=== PATIENT | female | born 1980 | race Hispanic/Latino ===

== ENCOUNTER 2019-02-06 15:08 | Outpatient (CLI) | payer MEDICAID ==
[2019-02-06] MEDS ORDERED: LACTATED RINGERS 500 ML IV ONE (15:58)
--- NOTE | 2019-02-06 21:04 | Ultrasound Report ---
PROCEDURE: US OB LIMITED TECHNIQUE: Real-time limited sonographic examination was performed for evaluation of amniotic fluid index for each fetus with image documentation (1 or more fetuses). HISTORY: well being COMPARISONS: None . FINDINGS: FETUS IUP: Single living intrauterine . Position: Cephalic . Amniotic fluid volume: Normal 9.1 cm Heart rate and rhythm: 166 BPM, Regular . IMPRESSION: Amniotic fluid index is within normal limits This document is electronically signed by Syd Camacho MD., February 06 2019 09:01:58 PM ET
--- NOTE | 2019-02-06 21:05 | Ultrasound Report ---
PROCEDURE: US OB BPP WO NON-STRESS TECHNIQUE: Sonographic evaluation for breathing, movement, tone, and amniotic flui d volume was performed. HISTORY: well being COMPARISONS: None . FINDINGS: FETUS Amniotic fluid volume Normal-score 2. At least one vertical pocket >2 cm or more in vertical axis . breathing: Normal-score 2 . movement: Normal-score 2 . tone: Normal-score 2 . Score: 8 of 8 . IMPRESSION: Normal biophysical profile . This document is electronically signed by Syd Camacho MD., February 06 2019 09:02:50 PM ET
[2019-02-20] MEDS ORDERED: BICITRA ONE (07:13)
[2019-02-20] MEDS ORDERED: ANCEF/STERILE WATER 2 GM/20 ML 2 GM/20 ML SYRINGE IV ONE (07:13)
[2019-02-20] MEDS ORDERED: PEPCID IV ONE (07:13)
[2019-02-20] MEDS ORDERED: REGLAN ONE (07:13)
== END 2019-02-06 19:06 | disposition left against medical advice (07) ==
LOC: LAB 15:08 → TRG 15:49 → LAB 19:06
PROVIDERS: ATTEND Advanced Practice Midwife
DX: O26.893 Other specified pregnancy related conditions, third trimester (principal); O09.523 Supervision of elderly multigravida, third trimester; Z67.11 Type A blood, Rh negative; Z3A.35 35 weeks gestation of pregnancy; Z87.891 Personal history of nicotine dependence
CPT/HCPCS: 59025; 76815; 76819; 86900; 86901; 96372; J2790; J0690; J2765

== ENCOUNTER 2019-02-25 11:36 | Outpatient (CLI) | payer MEDICAID | END 2019-02-25 11:37 | disposition home or self-care (01) | LOC: LAB 11:36 | PROVIDERS: ATTEND Advanced Practice Midwife | DX: Z34.83 Encounter for supervision of other normal pregnancy, third trimester (principal); Z3A.38 38 weeks gestation of pregnancy | CPT/HCPCS: 86850; 86870; 86900; 86901 ==

== ENCOUNTER 2019-03-05 21:18 | Inpatient (IN) | payer MEDICAID ==
[2019-03-06] MEDS ORDERED: CERVIDIL VG ONE (00:08)
[2019-03-06] MEDS ORDERED: BRETHINE IVP PRN (00:10)
[2019-03-06] MEDS ORDERED: BRETHINE SUB-Q PRN (00:10)
[2019-03-06] MEDS ORDERED: MINERAL OIL PO PRN (00:10)
[2019-03-06] MEDS ORDERED: XYLOCAINE 2% INFILTRATI ONE (00:10)
[2019-03-06] MEDS: ALUM-MAG HYDROX-SIMETH 200-200-20MG/5ML PO PRN ×4 (00:26→20:00)
[2019-03-06] MEDS: LACTATED RINGERS 1,000 ML IV SCH ×2 (00:27→17:04)
[2019-03-06] MEDS ORDERED: PITOCin/NS 20 UNIT/1000ML DRIP 20 UNITS/1,000 ML BAG IV SCH (01:00)
[2019-03-06 01:44] LABS: Hematocrit 33.8 % (30.3-42.9); Hemoglobin 11.3 gm/dl (10.1-14.3); Mean Corpuscular HGB Conc 33 % (30-34); Mean Corpuscular Volume 87 fl (79-97); Platelet Count 212 K/mm3 (140-440); Red Cell Distribution Width 19.7 % (13.2-15.2)
--- NOTE | 2019-03-06 11:27 | History and Physical Report ---
History of Present Illness Date of examination: 03/06/19 Date of admission: 03/05/19 21:18 Chief complaint: Induction of labor History of present illness: Pt is a 38yo WF EDC 03/07/19; EGA 39 6/7 weeks presents for induction of labor due to suspected macrosomia per [facility]. She received late preantal care at [facility] since 34 weeks after transfer from [place], and co- managed by [facility] for AMA, Obesity, Fibromyalgia, Anxiety, ADD and PTSD. records are available and GBS is Negative. Past History Past Medical History: other (Pysch issues) Past Surgical History: no surgical history Social history: no significant social history, - Obstetrical History Expected Date of Delivery: 03/07/19 Actual Gestation: 39 Week(s) 6 Day(s) : 8 Medications and Allergies Allergies Allergy/AdvReac Type Severity Reaction Status Date / Time Iodinated Contrast- Oral and AdvReac Severe Anaphylaxis Verified 02/06/19 15:56 IV Dye Home Medications Medication Instructions Recorded Confirmed Last Taken Type Pnv 102/Iron/Folate 1/Dss/Dha 03/06/19 Unknown History [Vitafol Fe+ Docusate Combo Pck] Active Meds: Active Medications Al Hydrox/Mg Hydrox/Simethicone (Alum-Mag Hydrox-Simeth [id number]/5ml) 30 ml PO Q4H PRN PRN Reason: Indigestion Last Admin: 03/06/19 10:02 Dose: 30 ml Documented by: Ephedrine Sulfate (Ephedrine Sulfate) 10 mg IV Q2M PRN PRN Reason: Hypotension Lactated Ringer's (Lactated Ringers) 1,000 mls @ 125 mls/hr IV DIRECT LISA Last Admin: 03/06/19 00:27 Dose: 125 mls/hr Documented by: Oxytocin/Sodium Chloride (Pitocin/Ns 20 Unit/1000ml Drip) 20 units in 1,000 mls @ 125 mls/hr IV DIRECT LISA Oxytocin/Sodium Chloride (Pitocin/Ns 30 Unit/500ml) 30 units in 500 mls @ 1 mls/hr IV TITR LISA; Protocol Mineral Oil (Mineral Oil) 30 ml PO QHS PRN PRN Reason: Constipation Last Admin: 03/06/19 07:53 Dose: 30 ml Documented by: Terbutaline Sulfate (Brethine) 0.25 mg SUB-Q ONCE PRN PRN Reason: Hyperstimulation/Hypertonicity Terbutaline Sulfate (Brethine) 0.25 mg IVP ONCE PRN PRN Reason: Hyperstimulation/Hypertonicity Review of Systems All systems: negative - Vital Signs Vital signs: Vital Signs Pulse BP 94 H 135/63 03/05/19 22:00 03/05/19 22:00 Temp Pulse Resp BP Pulse Ox 96.3 F L 88 18 134/69 03/06/19 10:05 03/06/19 10:05 03/05/19 23:23 03/06/19 10:05 - Physical Exam Breasts: Positive: deferred Cardiovascular: Regular rate Lungs: Positive: Clear to auscultation Genitourinary (Female): Positive: normal external genitalia Vagina: Positive: normal moisture Uterus: Positive: enlarged Extremities: Positive: normal - Obstetrical FHR: category 1 Uterine Contraction Monitor Mode: External Cervical Dilatation: 1 (per nurse) Cervical Effacement Percentage: 50 (per nurse) station: -3 Uterine Contraction Pattern: Irregular Uterine Contraction Intensity: Mild Results Result Diagrams: 03/06/19 00:15 Abnormal lab results 03/06/19 Range/Units 00:15 RDW 19.7 H (13.2-15.2) % All other labs normal. Assessment and Plan - Patient Problems (1) 39 weeks gestation of Onset Date: 03/06/19 Current Visit: Yes Status: Acute Plan to address problem: A: IUP @ 39 6/7 weeks Suspected macrosomia AMA P: Admit for cervidil/pitocin induction of labor (2) AMA (advanced maternal age) multigravida 35+ Onset Date: 03/06/19 Current Visit: Yes Status: Chronic Qualifiers: Trimester: third trimester Qualified Code(s): O09.523 - Supervision of elderly multigravida, third trimester (3) Chronic post-traumatic stress disorder (PTSD) Onset Date: 03/06/19 Current Visit: Yes Status: Chronic (4) Fibromyalgia Onset Date: 03/06/19 Current Visit: Yes Status: Chronic
[2019-03-06] MEDS: PITOCin/NS 30 UNIT/500ML 30 UNITS/500 ML BAG IV SCH (17:04)
[2019-03-07] MEDS: ALUM-MAG HYDROX-SIMETH 200-200-20MG/5ML PO PRN ×3 (04:00→20:00)
[2019-03-07] MEDS: LACTATED RINGERS 1,000 ML IV SCH (14:33)
[2019-03-07] MEDS: PITOCin/NS 30 UNIT/500ML 30 UNITS/500 ML BAG IV SCH (16:07)
--- NOTE | 2019-03-07 20:00 | Progress Note ---
Assessment and Plan - Patient Problems (1) 39 weeks gestation of Onset Date: 03/06/19 Current Visit: Yes Status: Acute Plan to address problem: A: IUP @ 40 0/7 weeks Suspected macrosomia AMA P: Continue with pitocin induction of labor (2) AMA (advanced maternal age) multigravida 35+ Onset Date: 03/06/19 Current Visit: Yes Status: Chronic Qualifiers: Trimester: third trimester Qualified Code(s): O09.523 - Supervision of elderly multigravida, third trimester (3) Chronic post-traumatic stress disorder (PTSD) Onset Date: 03/06/19 Current Visit: Yes Status: Chronic (4) Fibromyalgia Onset Date: 03/06/19 Current Visit: Yes Status: Chronic Subjective - Subjective Date of service: 03/07/19 Principal diagnosis: IUP @ 40 0/7 weeks Interval history: Pt is a 38yo WF EDC 03/07/19; EGA 40 0/7 weeks presents for induction of labor due to suspected macrosomia per [facility]. She received late preantal care at [facility] since 34 weeks after transfer from [place], and co- managed by [facility] for AMA, Obesity, Fibromyalgia, Anxiety, ADD and PTSD. records are available and GBS is Negative. She received cervidil the first night, but refused pitocin. She has since accepted pitocin for induction of labor and is currently on 16mu/min, but has also refused cervical checks. Patient reports: movement normal, contractions, no new complaints, no loss of fluid, no vaginal bleeding Objective - Vital Signs Vital Signs: Vital Signs - 12hr 03/07/19 03/07/19 03/07/19 09:45 10:00 10:15 Temperature Pulse Rate 113 H 103 H 87 Respiratory Rate Blood Pressure 130/74 114/68 119/56 03/07/19 03/07/19 03/07/19 10:32 10:45 11:00 Temperature Pulse Rate 94 H 98 H 88 Respiratory Rate Blood Pressure 118/56 118/66 114/65 03/07/19 03/07/19 03/07/19 11:15 11:30 12:01 Temperature Pulse Rate 87 87 76 Respiratory Rate Blood Pressure 112/75 122/71 111/55 03/07/19 03/07/19 03/07/19 12:05 12:30 13:01 Temperature 98.4 F Pulse Rate 83 78 Respiratory 20 Rate Blood Pressure 112/65 122/58 03/07/19 03/07/19 03/07/19 13:16 14:31 14:46 Temperature Pulse Rate 77 90 100 H Respiratory Rate Blood Pressure 139/77 133/66 125/71 03/07/19 03/07/19 03/07/19 15:00 15:16 16:02 Temperature Pulse Rate 91 H 98 H 90 Respiratory Rate Blood Pressure 119/56 110/64 122/64 03/07/19 03/07/19 03/07/19 16:32 17:00 17:02 Temperature 98.0 F Pulse Rate 92 H 85 Respiratory Rate Blood Pressure 118/65 108/52 03/07/19 03/07/19 17:32 18:32 Temperature Pulse Rate 97 H 93 H Respiratory Rate Blood Pressure 150/86 122/80 - Exam Abdomen: Present: normal appearance, soft Uterus: Present: normal FHR: category 1 Uterine Contraction Monitor Mode: External Uterine Contraction Pattern: Irregular Uterine Tone Measurement Phase: Contraction Uterine Contraction Intensity: Mild - Labs Labs: Abnormal Labs 03/06/19 00:15 RDW 19.7 H
[2019-03-08] MEDS ORDERED: CERVIDIL VG ONE (05:13)
[2019-03-08] MEDS ORDERED: MARCAINE 0.25% INFILTRATI ONE (07:08)
[2019-03-08] MEDS ORDERED: BICITRA ONE (07:26)
[2019-03-08] MEDS ORDERED: NARCAN 2 MG/2 ML IV PRN (09:30)
[2019-03-08] MEDS ORDERED: fentaNYL-BUPIV 2 MCG/ML-0.125% 200 MCG/100 ML BAG EPIDURAL SCH (09:30)
--- NOTE | 2019-03-08 10:00 | Progress Note ---
Assessment and Plan - Patient Problems (1) 39 weeks gestation of Onset Date: 03/06/19 Current Visit: Yes Status: Acute Plan to address problem: A: IUP @ 40 1/7 weeks Suspected macrosomia AMA P: Continue with cervidil induction of labor (2) AMA (advanced maternal age) multigravida 35+ Onset Date: 03/06/19 Current Visit: Yes Status: Chronic Qualifiers: Trimester: third trimester Qualified Code(s): O09.523 - Supervision of elderly multigravida, third trimester (3) Chronic post-traumatic stress disorder (PTSD) Onset Date: 03/06/19 Current Visit: Yes Status: Chronic (4) Fibromyalgia Onset Date: 03/06/19 Current Visit: Yes Status: Chronic Subjective - Subjective Date of service: 03/08/19 Principal diagnosis: IUP @ 40 1/7 weeks Interval history: Pt is a 38yo WF EDC 03/07/19; EGA 40 1/7 weeks presents for induction of labor due to suspected macrosomia per [facility]. She received late preantal care at [facility] since 34 weeks after transfer from [place], and co- managed by [facility] for AMA, Obesity, Fibromyalgia, Anxiety, ADD and PTSD. records are available and GBS is Negative. She received cervidil the first night, followed by pitocin. She rested last night and now ready to receive cervidil again. She again refused pitocin and monitoring. Patient reports: movement normal, contractions, no new complaints, no loss of fluid, no vaginal bleeding Objective - Vital Signs Vital Signs: Vital Signs - 12hr 03/08/19 08:30 Pulse Rate 84 Blood Pressure 119/63 - Exam Abdomen: Present: normal appearance, soft FHR: category 1 Uterine Contraction Monitor Mode: External Uterine Contraction Pattern: Irregular Uterine Tone Measurement Phase: Contraction Uterine Contraction Intensity: Mild - Labs Labs: Abnormal Labs 03/06/19 00:15 RDW 19.7 H
[2019-03-08] MEDS ORDERED: TYLENOL PO PRN (10:13)
[2019-03-08] MEDS: ALUM-MAG HYDROX-SIMETH 200-200-20MG/5ML PO PRN (10:20)
[2019-03-09] MEDS ORDERED: ceFAZolin 3 GM in NACL 0.9% 100 ML IV NR (07:30)
[2019-03-09] MEDS ORDERED: REGLAN IV ONE ×2 (08:00→08:51)
[2019-03-09] MEDS ORDERED: PEPCID IV ONE ×2 (08:00→08:51)
[2019-03-09] MEDS ORDERED: BICITRA PO ONE ×2 (08:00→08:51)
[2019-03-09] MEDS ORDERED: LACTATED RINGERS 1,000 ML IV SCH ×2 (08:00→09:00)
[2019-03-09] MEDS ORDERED: PITOCin/NS 20 UNIT/1000ML DRIP 20 UNITS/1,000 ML BAG IV SCH ×3 (08:00→12:00)
[2019-03-09 08:03] LABS: Basophils % (Auto) 0.2 % (0.0-1.8); Eosinophils # (Auto) 0.1 K/mm3 (0.0-0.4); Eosinophils % (Auto) 0.9 % (0.0-4.3); Hematocrit 33.7 % (30.3-42.9); Hemoglobin 11.3 gm/dl (10.1-14.3); Lymphocytes # (Auto) 1.4 K/mm3 (1.2-5.4); Lymphocytes % (Auto) 19.3 % (13.4-35.0); Mean Corpuscular HGB Conc 34 % (30-34); Mean Corpuscular Volume 86 fl (79-97); Monocytes # (Auto) 0.6 K/mm3 (0.0-0.8); Monocytes % (Auto) 8.4 % (0.0-7.3); Platelet Count 202 K/mm3 (140-440); Red Blood Count 3.91 M/mm3 (3.65-5.03); Red Cell Distribution Width 19.7 % (13.2-15.2)
[2019-03-09] MEDS ORDERED: ANCEF/STERILE WATER 2 GM/20 ML 4 GM/40 ML SYRINGE IV ONE (08:19)
--- NOTE | 2019-03-09 08:57 | Progress Note ---
Assessment and Plan - Patient Problems (1) 39 weeks gestation of Onset Date: 03/06/19 Current Visit: Yes Status: Acute Plan to address problem: A: IUP @ 40 2/7 weeks Suspected macrosomia AMA P: Will proceed with a C Section due to failed induction of labor. (2) AMA (advanced maternal age) multigravida 35+ Onset Date: 03/06/19 Current Visit: Yes Status: Chronic Qualifiers: Trimester: third trimester Qualified Code(s): O09.523 - Supervision of elderly multigravida, third trimester (3) Chronic post-traumatic stress disorder (PTSD) Onset Date: 03/06/19 Current Visit: Yes Status: Chronic (4) Fibromyalgia Onset Date: 03/06/19 Current Visit: Yes Status: Chronic Subjective - Subjective Date of service: 03/09/19 Principal diagnosis: IUP @ 40 2/7 weeks Interval history: Pt is a 38yo WF EDC 03/07/19; EGA 40 2/7 weeks presents for induction of labor due to suspected macrosomia per [facility]. She received late preantal care at [facility] since 34 weeks after transfer from [place], and co- managed by [facility] for AMA, Obesity, Fibromyalgia, Anxiety, ADD and PTSD. records are available and GBS is Negative. She received cervidil the first night, followed by pitocin. She rested last night and now ready to receive cervidil again. She again refused pitocin and monitoring. This morning she has agreed to proceed with a C Section due to failed induction of labor Patient reports: movement normal, contractions, no new complaints, no loss of fluid, no vaginal bleeding Objective - Vital Signs Vital Signs: Vital Signs - 12hr 03/09/19 03/09/19 08:38 08:42 Pulse Rate 96 H 88 Blood Pressure 126/77 O2 Sat by Pulse 95 Oximetry - Exam Abdomen: Present: normal appearance, soft FHR: category 1 Uterine Contraction Monitor Mode: External Uterine Contraction Pattern: Irregular Uterine Tone Measurement Phase: Contraction Uterine Contraction Intensity: Mild - Labs Labs: Abnormal Labs 03/06/19 03/09/19 00:15 07:38 RDW 19.7 H 19.7 H Mills % (Auto) 8.4 H Seg Neutrophils % 71.2 H Laboratory Results - last 24 hr 04/27/19 07:38 WBC 7.0 RBC 3.91 Hgb 11.3 Hct 33.7 MCV 86 MCH 29 MCHC 34 RDW 19.7 H Plt Count 202 Lymph % (Auto) 19.3 Mills % (Auto) 8.4 H Eos % (Auto) 0.9 Baso % (Auto) 0.2 Lymph # 1.4 Mills # 0.6 Eos # 0.1 Baso # 0.0 Seg Neutrophils % 71.2 H Seg Neutrophils # 5.0
[2019-03-09] MEDS ORDERED: ANCEF/STERILE WATER 2 GM/20 ML 2 GM/20 ML SYRINGE IV NR (09:00)
[2019-03-09] MEDS ORDERED: ZOFRAN IV PRN (09:07)
[2019-03-09] MEDS ORDERED: PHENERGAN PR PRN (09:07)
[2019-03-09] MEDS ORDERED: BENADRYL IV PRN (09:07)
[2019-03-09] MEDS ORDERED: DILAUDID IV PRN (09:07)
[2019-03-09] MEDS ORDERED: NARCAN 0.4 MG/1 ML IV PRN ×2 (09:07→11:01)
[2019-03-09] MEDS ORDERED: PHENERGAN PO PRN (09:07)
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
[2019-03-09] MEDS ORDERED: NACL 0.9% IR ONE (09:13)
[2019-03-09] MEDS ORDERED: WATER FOR IRRIG STERILE IR ONE (09:13)
--- NOTE | 2019-03-09 09:13 | Anesthesia Day of Surgery ---
Anesthesia Day of Surgery - Day of Surgery Patient Examined: Yes Patient H&P Reviewed: Yes Patient is NPO: Yes Beta Blockers: No Cardiac Clearance: No Pulmonary Clearance: No Pasquale's Test: N/A
[2019-03-09] MEDS ORDERED: SUBLIMAZE ONE (09:17)
[2019-03-09] MEDS ORDERED: ANCEF/STERILE WATER 2 GM/20 ML IV ONE ×2 (09:56)
[2019-03-09] MEDS ORDERED: SODIUM CHLORIDE FLUSH SYRINGE 10 ML IV NR ×2 (10:00→12:00)
[2019-03-09] MEDS ORDERED: DILAUDID ONE (10:11)
[2019-03-09] MEDS ORDERED: TORADOL ONE (10:24)
[2019-03-09] MEDS ORDERED: BENADRYL ONE (10:24)
--- NOTE | 2019-03-09 10:42 | Operative Report ---
Operative Report Operative Report: Date of procedure: 03/09/2019 Pre-operative diagnosis: 1. Intrauterine at 40-2/7 weeks 2. Suspec katelyn macrosomia 3. Advanced maternal age 4. Chronic posttraumatic stress disorder 5. Failed induction of labor Post-operative diagnosis: Same Procedure name(s): Primary low transverse section Surgeon: Henry Bautista MD Rn Social Services: None Anesthesia: Spinal anesthesia by Arnold Bautista CRNA EBL: 650 mL Findings: A 4406 g female Apgars 8 at 1 minute and 9 at 5 minutes. Clear amniotic fluid. Normal uterus. Normal tubes and ovaries bilaterally. Procedure: After the patient was prepped and draped in usual sterile fashion, and after satisfactory level of epidural anesthesia was obtained, the skin knife was used to make a transverse skin incision. The incision was excised down to layer of the fascia, which was nicked in the midline and extended laterally using the Bovie cautery. The rectus muscles were dissected off the rectus fascia both superiorly and inferiorly. The rectus bellies in the midline, and the peritoneum was entered under direct visualization. The peritoneal incision was extended superiorly and inferiorly. A bladder flap was created and the bladder blade was then placed. The uterus was scored in a curvilinear linear fashion, entered in the midline revealing clear amniotic fluid. The infant's head was delivered onto the surgical field with the aid of a vacuum, and the oropharynx and nasopharynx were bulb suctioned. The rest of the infant's body was delivered, cord was doubly clamped and cut and the was handed to the waiting respiratory team. Cord blood was then obtained. The placenta was manually removed from the uterus, and the uterus removed from its normal anatomical position. After gentle uterine lavage, the incision was inspected and found to be without extensions. It was then closed in 2 layers using 0 Vicryl suture in a running interlocking fashion, the second layer imbricating the first. After good hemostasis was achieved, copious amounts or irrigation was performed, and the gutters were suctioned free of blood and blood clots. Tisseel sealant was sprayed across the uterine incision. The uterus was then returned to its normal anatomical position, and after excellent hemostasis assured, the peritoneum was re-approximated using 3-0 Vicryl suture in a running interlocking fashion, and then the rectus muscles were re-approximated using 3-0 Vicryl suture in a [id number] configuration. The fascia was then re- approximated using 0 Vicryl suture in running interlocking fashion. The subcutaneous layer was made hemostatic using Bovie cautery, the Tisseel sealant was sprayed across the fascial incision and the skin edges re-approximated using 4-0 Vicryl suture in a sub-cuticular fashion. Patient tolerated the procedure well was transported to recovery in stable condition.
--- NOTE | 2019-03-09 10:54 | Post Anesthesia Evaluation ---
- Post Anesthesia Evaluation Patient Participated: Yes Airway Patent: Yes Stable Respiratory Function: Yes Nausea/Vomiting: No Temp > 96.8F: Yes Pain Manageable: Yes Adequeate Hydration: Yes Anesthesia Complications: No Block Receding Appropriately: Yes Patient on Ventilator: No
[2019-03-09] MEDS ORDERED: LANSINOH TP PRN (11:01)
[2019-03-09] MEDS ORDERED: MILK OF MAGNESIA PO PRN (11:01)
[2019-03-09] MEDS ORDERED: SENOKOT PO PRN (11:01)
[2019-03-09] MEDS ORDERED: TORADOL IV PRN (11:01)
[2019-03-09] MEDS ORDERED: TUCKS PAD TP PRN (11:01)
[2019-03-09] MEDS ORDERED: VASELINE LIP THERAPY TP PRN (11:33)
[2019-03-09] MEDS ORDERED: D5LR 1,000 ML IV SCH (12:00)
[2019-03-09] MEDS: ANCEF/NS 1 GM/50 ML 1 GM/50 ML BAG IV SCH (17:27)
[2019-03-09] MEDS: PERCOCET 5/325 PO PRN (20:14)
[2019-03-10 00:02] LABS: Hematocrit 27.2 % (30.3-42.9)
[2019-03-10] MEDS: IBUPROFEN PO PRN ×3 (00:14→18:35)
[2019-03-10] MEDS: ANCEF/NS 1 GM/50 ML 1 GM/50 ML BAG IV SCH (01:35)
[2019-03-10] MEDS: PERCOCET 5/325 PO PRN ×2 (01:36→12:33)
[2019-03-10] MEDS: MYLICON PO PRN ×2 (02:44→09:36)
[2019-03-10] MEDS: NORCO 5/325 PO PRN ×3 (08:10→22:17)
[2019-03-10] MEDS: PRENATAL VITAMIN PO SCH (09:36)
[2019-03-10] MEDS: FEOSOL PO SCH (09:36)
--- NOTE | 2019-03-10 09:36 | Progress Note ---
Assessment and Plan - Patient Problems (1) 39 weeks gestation of Onset Date: 03/06/19 Current Visit: Yes Status: Resolved (2) AMA (advanced maternal age) multigravida 35+ Onset Date: 03/06/19 Current Visit: Yes Status: Chronic Qualifiers: Trimester: third trimester Qualified Code(s): O09.523 - Supervision of elderly multigravida, third trimester (3) Chronic post-traumatic stress disorder (PTSD) Onset Date: 03/06/19 Current Visit: Yes Status: Chronic (4) Fibromyalgia Onset Date: 03/06/19 Current Visit: Yes Status: Chronic (5) Status post Onset Date: 03/10/19 Current Visit: Yes Status: Resolved Plan to address problem: A: S/P C Section - POD #1 Doing well Asymptomatic anemia - stable P: Continue RPOC Anticipate discharge tomorrow. Subjective - Subjective Date of service: 03/10/19 Principal diagnosis: s/p C Section - POD #1 Interval history: Pt is feeling well without complaints, tolerating a reg diet without nausea or vomiting, ambulating and voiding without difficulty. Patient reports: appetite normal, voiding normally, pain well controlled, flatus, ambulating normally, no dizzy ambulation, no nauseated [place]: doing well, bottle feeding Objective - Vital Signs Latest vital signs: Vital Signs Temp Pulse Resp BP Pulse Ox 03/10/19 08:40 98.2 F 99 H 18 100/57 03/10/19 03:45 99.2 F 106 H 18 117/67 96 03/10/19 01:03 98 F 98 H 18 101/66 97 03/09/19 20:55 98.5 F 103 H 18 123/71 97 03/09/19 16:16 98.5 F 94 H 18 118/52 03/09/19 14:06 20 03/09/19 12:30 98.7 F 79 106/59 03/09/19 11:46 97.7 F 91 H 16 102/55 03/09/19 11:32 68 110/51 03/09/19 11:25 75 115/56 03/09/19 11:20 68 105/53 03/09/19 11:15 73 107/51 03/09/19 11:13 61 105/44 03/09/19 10:55 97.7 F 98 H 16 100/53 100 Intake and Output 03/09/19 03/10/19 03/10/19 22:59 06:59 14:59 Intake Total 770 240 240 Output Total 750 600 Balance 20 240 -360 Intake: IV 50 ANCEF/NS 1 GM/50 ML 1 gm 50 In 50 ml @ 100 mls/hr IV Q8H [facility] Rx#:[id number] Oral 720 240 Intake, Free Water 240 Output: Urine 750 600 Indwelling Catheter 100 Uretheral (Moody) 650 Void 600 Other: Total, Intake Amount 360 240 Total, Output Amount 100 600 # Voids Void 1 1 - Exam Breasts: Present: deferred Abdomen: Present: normal appearance, soft Uterus: Present: normal, firm, fundal height below umbilicus Incision: Present: normal, dry, intact - Labs Labs: Abnormal lab results 03/09/19 Range/Units 22:51 Hgb 9.0 L (10.1-14.3) gm/dl Hct 27.2 L D (30.3-42.9) % Laboratory Tests 03/06/19 03/06/19 03/06/19 00:15 00:15 00:15 WBC 9.5 RBC 3.90 Hgb 11.3 Hct 33.8 MCV 87 MCH 29 MCHC 33 RDW 19.7 H Plt Count 212 Lymph % (Auto) Miller % (Auto) Eos % (Auto) Baso % (Auto) Lymph # Miller # Eos # Baso # Seg Neutrophils % Seg Neutrophils # RPR Nonreactive Blood Type A NEGATIVE Antibody Screen Positive Antibody Identification Anti-D (Actively Aquired) Screen 03/09/19 03/09/19 03/09/19 07:31 07:38 22:51 WBC 7.0 RBC 3.91 Hgb 11.3 9.0 L Hct 33.7 27.2 L D MCV 86 MCH 29 MCHC 34 RDW 19.7 H Plt Count 202 Lymph % (Auto) 19.3 Miller % (Auto) 8.4 H Eos % (Auto) 0.9 Baso % (Auto) 0.2 Lymph # 1.4 Miller # 0.6 Eos # 0.1 Baso # 0.0 Seg Neutrophils % 71.2 H Seg Neutrophils # 5.0 RPR Blood Type A NEGATIVE Antibody Screen Positive Antibody Identification Anti-D (Actively Aquired) Screen 03/09/19 22:51 WBC RBC Hgb Hct MCV MCH MCHC RDW Plt Count Lymph % (Auto) Miller % (Auto) Eos % (Auto) Baso % (Auto) Lymph # Miller # Eos # Baso # Seg Neutrophils % Seg Neutrophils # RPR Blood Type A NEGATIVE Antibody Screen Positive Antibody Identification Anti-D (Actively Aquired) Screen Negative
[2019-03-10] MEDS ORDERED: BOOSTRIX IM ONE (11:03)
[2019-03-10] MEDS ORDERED: M-M-R II VACCINE SUB-Q ONE (11:03)
[2019-03-10] MEDS: ALUM-MAG HYDROX-SIMETH 200-200-20MG/5ML PO PRN (18:31)
[2019-03-11] MEDS: NORCO 5/325 PO PRN (04:16)
[2019-03-11] MEDS: IBUPROFEN PO PRN ×2 (06:50→12:45)
--- NOTE | 2019-03-11 09:06 | Progress Note ---
Assessment and Plan - Patient Problems (1) 39 weeks gestation of Onset Date: 03/06/19 Current Visit: Yes Status: Resolved (2) AMA (advanced maternal age) multigravida 35+ Onset Date: 03/06/19 Current Visit: Yes Status: Chronic Qualifiers: Trimester: third trimester Qualified Code(s): O09.523 - Supervision of elderly multigravida, third trimester (3) Chronic post-traumatic stress disorder (PTSD) Onset Date: 03/06/19 Current Visit: Yes Status: Chronic (4) Fibromyalgia Onset Date: 03/06/19 Current Visit: Yes Status: Chronic (5) Status post Onset Date: 03/10/19 Current Visit: Yes Status: Resolved Plan to address problem: A: S/P C Section - POD #2 Doing well Asymptomatic anemia - stable P: May go home today. Subjective - Subjective Date of service: 03/11/19 Principal diagnosis: s/p C Section - POD #2 Interval history: Pt is feeling well without complaints, tolerating a reg diet without nausea or vomiting, ambulating and voiding without difficulty. Patient reports: appetite normal, voiding normally, pain well controlled, flatus, ambulating normally, no dizzy ambulation, no nauseated [place]: doing well, bottle feeding Objective - Vital Signs Latest vital signs: Vital Signs Temp Pulse Resp BP BP Pulse Ox 03/11/19 06:50 18 03/11/19 04:16 18 03/11/19 00:30 98.2 F 84 18 105/66 98 03/10/19 22:17 18 03/10/19 16:10 98 F 96 H 18 105/60 Intake and Output 03/10/19 03/11/19 03/11/19 22:59 06:59 14:59 Intake Total 240 480 Balance 240 480 Intake: Oral 240 Intake, Free Water 480 Other: Total, Intake Amount 240 # Voids Void 1 2 - Exam Breasts: Present: deferred Cardiovascular: Present: Regular rate Lungs: Present: Clear to auscultation Abdomen: Present: normal appearance Uterus: Present: normal, firm, fundal height below umbilicus Extremities: Present: normal Incision: Present: normal, dry, intact
--- NOTE | 2019-03-11 09:09 | Discharge Summary ---
Providers - Providers Date of Admission: 03/08/19 10:00 Date of discharge: 03/11/19 Attending physician: MORE DOUGLASS 03/09/19 16:45 Consult to Case Management [CONS] Routine Services Needed at Discharge: [employer] Notified:: Dennis Phone number called:: [phone] Additional Physician Instructions: pt relocated from [place] and no longer living with significant other and living with support person in [place] Primary care physician: MORE DOUGLASS Hospitalization Reason for admission: induction of labor, IUP at term Delivery: Procedure: section, primary low transverse Episiotomy: none Incision: normal, dry, intact Other procedures: none complications: none Discharge diagnosis: IUP at term delivered [place] baby: female Hospital course: Pt is a 38yo WF EDC 03/07/19; EGA 40 2/7 weeks who presented for induction of labor due to suspected macrosomia per [facility]. She received late care at [facility] since 34 weeks after transfer from [place], and co-managed by [facility] for AMA, Obesity, Fibromyalgia, Anxiety, ADD and PTSD. She received cervidil followed by pitocin for 3 days, but ended up with an uncomplicated C Section due to failed induction of labor. Post operative course was unremarkable, and by POD #2 she was tolerating a reg diet without nausea or vomiting, ambulating and voiding without difficulty. She was therefore discharged to home on POD #2 in stable condition. Condition at discharge: Good Disposition: DC-01 TO HOME OR SELFCARE - Discharge Diagnoses (1) 39 weeks gestation of Status: Resolved (2) AMA (advanced maternal age) multigravida 35+ Status: Chronic Qualifiers: Trimester: third trimester Qualified Code(s): O09.523 - Supervision of elderly multigravida, third trimester (3) Chronic post-traumatic stress disorder (PTSD) Status: Chronic (4) Fibromyalgia Status: Chronic (5) Status post Status: Resolved Plan - Discharge Medications Prescriptions: Ferrous Sulfate [Feosol 325 MG tab] 325 mg PO BID #60 tablet Ibuprofen [Motrin 800 MG tab] 800 mg PO Q6H PRN #30 tablet PRN Reason: Pain, Mild (1-3) HYDROcodone/APAP 5-325 [[place] 5-325 mg TAB] 1 each PO Q6HR PRN #30 tablet PRN Reason: Pain, Moderate (4-6) Vit-Fe Fumar-FA [ Vitamin] 1 each PO QDAY #30 tablet - Provider Discharge Summary Activity: routine, no sex for 6 weeks, no heavy lifting 4 weeks, no strenuous exercise Diet: routine Instructions: routine Additional instructions: [] Smoking cessation referral if applicable(refer to patient education folder for contact #) [] Refer to [facility] Booklet Call your doctor immediately for: * Fever > 100.5 * Heavy vaginal bleeding ( >1 pad per hour) * Severe persistent headache * Shortness of breath * Reddened, hot, painful area to leg or breast * Drainage or odor from incision. * Keep incision clean and dry at all times and follow doctor's instructions regarding bathing/showering - Follow up plan Follow up: MORE DOUGLASS MD [Primary Care Provider] - 14 Days GET ROLLINS CNM [Advanced Practice Nurse] - 14 Days
[2019-03-11] MEDS: PRENATAL VITAMIN PO SCH (09:59)
[2019-03-11] MEDS: FEOSOL PO SCH (09:59)
[2019-03-11] MEDS: PERCOCET 5/325 PO PRN (12:44)
[2019-03-11 17:08] VITALS: BP 116/65
== END 2019-03-11 15:40 | disposition home or self-care (01) | DRG 766 ==
LOC: UNDOADMIN 21:18 → LD 21:18 → OB 03-09 12:06
PROVIDERS: ADMIT Obstetrics & Gynecology; ATTEND Obstetrics & Gynecology
PROC: 3E0P7VZ Introduction of Hormone into Female Reproductive, Via Natural or Artificial Opening (ICD-10-PCS; 2019-03-08)
PROC: 10D00Z1 Extraction of Products of Conception, Low, Open Approach (ICD-10-PCS; principal; 2019-03-09)
PROC: 3E0234Z Introduction of Serum, Toxoid and Vaccine into Muscle, Percutaneous Approach (ICD-10-PCS; 2019-03-10)
DX: O36.63X0 Maternal care for excessive fetal growth, third trimester, not applicable or unspecified (principal); O99.344 Other mental disorders complicating childbirth; F43.12 Post-traumatic stress disorder, chronic; O61.0 Failed medical induction of labor; F41.9 Anxiety disorder, unspecified; O99.214 Obesity complicating childbirth; E66.9 Obesity, unspecified; X58.XXXA Exposure to other specified factors, initial encounter; Y93.89 Activity, other specified; Y92.89 Other specified places as the place of occurrence of the external cause; Y99.8 Other external cause status; O90.81 Anemia of the puerperium; D64.9 Anemia, unspecified; Z23 Encounter for immunization; Z37.0 Single live birth; Z91.041 Radiographic dye allergy status; Z3A.40 40 weeks gestation of pregnancy
CPT/HCPCS: 36415; 59200; 85014; 85018; 85025; 85027; 85461; 86592; 86762; 86850; 86870; 86900; 86901; G0378; C9250; J0690; J1170; J1200; J1885; J2405; J2590; J2765; J3010; J7120; J7121